=== PATIENT | female | born 1995 | race Caucasian/White ===

== ENCOUNTER 2016-06-02 20:31 | Emergency (ER) | payer BC ==
[~2016-06-02] VITALS: Ht 170.2 cm; Wt 79.7 kg
[2016-06-02 20:39] VITALS: TEMP 36.7; Ht 170.2 cm; Wt 79.7 kg
[2016-06-02] MEDS ORDERED: BCPILLS PO (20:46)
--- NOTE | 2016-06-02 21:24 | DIAGNOSTIC IMAGING REPORT ---
RIGHT FOOT MIN 3 VIEWS ROUTINE CLINICAL HISTORY: Right foot pain following fall. COMPARISON: None FINDINGS: The tarsometatarsal joints are intact. There is no acute fracture within the right foot. Joint spaces are preserved. IMPRESSION: No acute fracture or dislocation of the right foot. Electronically signed by: Marcell Nation M.D. 06/02/2016 9:22 PM Dictated Date/Time: 06/02/2016 9:21 PM
--- NOTE | 2016-06-02 21:53 | EMERGENCY ROOM VISIT NOTE ---
ED Visit Note First contact with patient: 20:44 Chief Complaint: RIGHT Outer Metatarsal Snapped when Twisted Foot History of Present Illness: Patient is a 20-year-old female who presents to the emergency department by private vehicle for evaluation of her RIGHT foot injury. The patient injured her foot while jumping out of bed earlier today. She twisted the foot resulting in pain in the proximal portion of the foot. She rates her current discomfort as a 7/10. She denies any numbness or tingling into her foot. Patient denies any history of fracture or injury to the affected area. The patient has tried nothing [id number] for her symptoms. She denies any associated ankle pain, leg pain, or knee pain. Medications: No current medications. Allergies: No known allergies. PMH: No pertinent past medical history. 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 ROS: All pertinent positive and negative review of systems are appropriately documented in the History of Present Illness. Physical Exam: VITAL SIGNS - Vital signs and nursing notes were reviewed. GENERAL - 20-year-old female appearing her stated age and in noticeable discomfort throughout the exam. MUSCULOSKELETAL - RIGHT foot without erythema, edema, and ecchymosis. Mild tenderness to palpation appreciated over the proximal 5th metatarsal. No tenderness to palpation in the plantar arch. No tenderness extending into the ankle or toes. Pt with full AROM at affected joint. NEUROLOGIC/VASCULAR - Neurovascularly intact distally with +3/5 dorsalis pedis pulses palpated bilaterally. Normal sensation to light and sharp touch appreciated distally. IMAGING: RIGHT FOOT MIN 3 VIEWS ROUTINE CLINICAL HISTORY: Right foot pain following fall. COMPARISON: None FINDINGS: The tarsometatarsal joints are intact. There is no acute fracture within the right foot. Joint spaces are preserved. IMPRESSION: No acute fracture or dislocation of the right foot. ED Course: Patient was seen and evaluated by myself. X-ray was obtained of the affected foot. Imaging results as above. Imaging results reviewed with the patient who acknowledges her stated. The patient was provided a postop shoe and crutches to utilize for the next few days. She will follow-up with [facility] or orthopedic surgery in the next 4-5 days if symptoms are not improving. She was educated on worrisome symptoms for return visit to the emergency department. Patient discharged home in good condition. In the evaluation and treatment of this patient, the following differential diagnoses were considered: Lisfranc Fracture, Talus Fracture, Tarsal Fracture, Foot Sprain. Impression: RIGHT Foot Sprain Discharge Instructions: You have been treated in the Emergency Department for your RIGHT Foot Sprain. For pain control, you can use the following [id number] medicines (if >12 yo): - Regular strength (325mg/tab) Tylenol (acetaminophen) 2 tabs every 4-6 hours as needed. Do not exceed 12 tablets in a 24 hour period. Avoid taking more than 4 grams (4000 mg) of Tylenol per day. This includes any other sources of acetaminophen you may take on a regular basis. - Regular strength (200 mg/tab) Advil (ibuprofen) 1-2 tabs every 4-6 hours as needed. Do not exceed a dose of 3200 mg per day. If this is a recent injury (<24 hrs), ice can be applied to the area of pain for the first 3 days to help decrease pain and inflammation. Please use the crutches and post-op shoe until you are able to ambulate without discomfort. Follow-up with your primary care provider or Orthopedic Surgeon in 4-5 days if your symptoms are not improving despite the treatment plan outlined above. Return to the Emergency Department if your current symptoms worsen despite treatment course outlined above, or if you develop any of the following symptoms : intractable pain despite aforementioned treatment course or new onset of numbness or tingling of the foot. Current/Historical Medications Scheduled Control Pills ( Control Pills), 1 TAB PO DAILY Allergies Coded Allergies: No Known Allergies (Unverified , 06/02/16) Vital Signs Date Time Temp Pulse Resp B/P Pulse Ox O2 Delivery O2 Flow Rate FiO2 06/02/16 21:59 85 16 140/82 95 06/02/16 20:39 36.7 105 18 155/83 98 Room Air Departure Information Impression Primary Impression: Foot sprain Dispostion Home / Self-Care Condition GOOD Referrals No Doctor, Assigned (PCP) Patient Instructions ED Sp[facility] Foot, [facility] Additional Instructions You have been treated in the Emergency Department for your RIGHT Foot Sprain. For pain control, you can use the following hfnl-hci-kvbsqxm medicines (if >12 yo): - Regular strength (325mg/tab) Tylenol (acetaminophen) 2 tabs every 4-6 hours as needed. Do not exceed 12 tablets in a 24 hour period. Avoid taking more than 4 grams (4000 mg) of Tylenol per day. This includes any other sources of acetaminophen you may take on a regular basis. - Regular strength (200 mg/tab) Advil (ibuprofen) 1-2 tabs every 4-6 hours as needed. Do not exceed a dose of 3200 mg per day. If this is a recent injury (<24 hrs), ice can be applied to the area of pain for the first 3 days to help decrease pain and inflammation. Please use the crutches and post-op shoe until you are able to ambulate without discomfort. Follow-up with your primary care provider or Orthopedic Surgeon in 4-5 days if your symptoms are not improving despite the treatment plan outlined above. Return to the Emergency Department if your current symptoms worsen despite treatment course outlined above, or if you develop any of the following symptoms : intractable pain despite aforementioned treatment course or new onset of numbness or tingling of the foot. Problem Qualifiers Primary Impression: Foot sprain Encounter type: initial encounter Laterality: right Qualified Codes: S93.601A - Unspecified sprain of right foot, initial encounter
[2016-06-02 21:59] VITALS: BP 140/82; PULSE 85; O2SAT 95
== END 2016-06-02 22:00 | disposition home or self-care (01) ==
LOC: C.EDB 20:32 → C.EDD 22:00
DX: S93.601A Unspecified sprain of right foot, initial encounter (principal); X50.9XXA Other and unspecified overexertion or strenuous movements or postures, initial encounter; Y93.39 Activity, other involving climbing, rappelling and jumping off; Y99.8 Other external cause status